=== PATIENT | female | born 1965 | race Caucasian/White ===

== ENCOUNTER 2022-05-29 19:14 | Emergency (ER) | payer BC ==
[~2022-05-29] VITALS: Ht 175.3 cm; Wt 86.4 kg
[2022-05-29 19:28] VITALS: TEMP 97.7
[2022-05-29] MEDS ORDERED: NORCO 325 MG-51 TAB PO (19:54)
[2022-05-29] MEDS ORDERED: PERCOCET 325 MG1 TA2 PO (20:29)
[2022-05-29 20:48] VITALS: BP 159/89; PULSE 71
== END 2022-05-29 20:48 | disposition home or self-care (01) ==
LOC: COL.ER 19:14
DX: M54.50 Low back pain, unspecified (principal); Z87.891 Personal history of nicotine dependence; Z28.310 Unvaccinated for COVID-19

== ENCOUNTER 2022-05-31 05:51 | Emergency (ER) | payer BC ==
[~2022-05-31] VITALS: Ht 175.3 cm; Wt 86.4 kg
[~2022-05-31 05:51] MED LIST: NORCO 325 MG-51 TAB PO; PERCOCET 325 MG1 TA2 PO
[2022-05-31 06:00] VITALS: TEMP 97.2
[2022-05-31 06:30] LABS: COLLECTION METHOD CLEAN CATCH
[2022-05-31 06:33] LABS: BASO % 0.1 % (0.0-2.0); EOS % 0.1 % (0.0-4.0); GRAN # 11.7 K/mm3 (1.4-6.5); GRAN % 82.3 % (42.2-75.2); HEMATOCRIT 41.4 % (37.0-47.0); LYMPH # 1.6 K/mm3 (1.2-3.4); LYMPH % 11.1 % (20.0-51.0); MEAN CELL VOLUME 89 fl (80.0-100.0); MEAN CORPUSCULAR HEMOGLOBIN 32 pg (27-31); MEAN CORPUSCULAR HGB CONC 36 g/dl (33.0-37.0); MEAN PLATELET VOLUME 10.9 fl (7.4-10.4); MONO # 0.9 K/mm3 (0.1-0.6); PLATELET COUNT 302 K/mm3 (130-400); RED BLOOD COUNT 4.63 M/mm3 (4.10-5.30); REDCELL DISTRIBUTION WIDTH-CV 11.8 % (11.5-14.5)
[2022-05-31 06:39] LABS: MUCOUS Present (NOT PRESENT); URINE BACTERIA Rare /hpf (NONE SEEN)
[2022-05-31 06:43] LABS: PH 5.5 (5.0-8.5); URINE APPEARANCE Clear (CLEAR/HAZY); URINE BLOOD 1+ (NEGATIVE); URINE COLOR Yellow (YELLOW); URINE GLUCOSE Negative (NEGATIVE); URINE KETONE 3+ (NEGATIVE); URINE NITRATE Negative (NEGATIVE); URINE PROTEIN(semi-quant) 3+ (NEGATIVE); URINE UROBILINOGEN 0.2 E.U/dL (0.2-1.0)
[2022-05-31 06:51] LABS: ALBUMIN 4.1 gm/dL (3.5-5.0); BILIRUBIN,TOTAL 0.4 mg/dL (0.2-1.2); CALCIUM 9.9 mg/dL (8.4-10.2); CREATININE, serum 0.72 mg/dL (0.57-1.11); POTASSIUM 3.9 mmol/L (3.5-4.5); TOTAL PROTEIN 7.8 gm/dL (6.2-8.1)
[2022-05-31 08:17] VITALS: BP 137/87; PULSE 92
== END 2022-05-31 08:17 | disposition home or self-care (01) ==
LOC: COL.ER 05:51
PROVIDERS: Emergency Medicine
DX: R10.31 Right lower quadrant pain (principal); D72.829 Elevated white blood cell count, unspecified; R11.0 Nausea
CPT/HCPCS: J2270; J2405; J7030; Q9967